=== PATIENT | female | born 1940 ===

== ENCOUNTER 2018-07-21 13:24 | Outpatient (CLI) | payer MEDICARE, BC ==
--- NOTE | 2018-07-21 14:05 | BD ---
DEXA bone scan. HISTORY: Age-related osteoporosis. The following table format lumbar spine:. L1 1.05 T score of 0.5 Z score of 2.8. L2 1.06 T score 0.3 Z score 2.9. L3 1.19 T score 0.9 Z score 3.6 L4 1.23 T score 1.6 Z score 4.3 Composite equals 1.14 T score 0.8 Z score 3.4. Findings compatible with normal bone mineral density. Left hip: Femoral neck 0.52 T score -3.0 Z score -0.7 Composite equals 0.65 T score -2.4 Z score -0.4. Findings compatible with osteoporosis. 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 The patient has a moderately increased risk of osteoporotic fractures. Transcribed Date/Time: 07/21/2018 2:23 PM
== END 2018-07-21 13:25 | disposition home or self-care (01) ==
LOC: BICMAMMO 13:24
PROVIDERS: ATTEND Internal Medicine Rheumatology
DX: M81.0 Age-related osteoporosis without current pathological fracture (principal); M47.816 Spondylosis without myelopathy or radiculopathy, lumbar region
CPT/HCPCS: 77080